=== PATIENT | male | born 1940 | race Caucasian/White ===

== ENCOUNTER 2016-06-10 13:55 | Inpatient (IN) | payer OTHER, MEDICAID ==
--- NOTE | 2016-06-10 14:39 | EDPHY ---
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, constipation, diabetes, dysphagia, GERD, G-tube, Sz d /o, Hep C, CHF, Herpes zoster, testicular mass, HTN, Infantile encephalopathy, kyphoscoliosis, pulmonary fibrosis, mental retardation, RAD, pancreatitis, left hemiplegia, urinary incontinence - Social History Smoking Status: Never smoked Constitutional: Initial Vital Signs Temperature (C) 37 C 06/10/16 13:59 Heart Rate 152 H 06/10/16 13:59 Respiratory Rate 44 H 06/10/16 13:59 Blood Pressure 109/77 06/10/16 13:59 O2 Sat (%) 81 L 06/10/16 13:59 O2 Delivery Mode Nasal Cannula O2 (L/minute) 4 Allergies/Adverse Reactions: codeine [Codeine] Allergy (Unknown, Verified 06/10/16 13:59) meperidine HCl [From Demerol] Allergy (Unknown, Verified 06/10/16 13:59) Phenothiazines Allergy (Unknown, Verified 06/10/16 13:59) promazine HCl [From Sparine] Allergy (Unknown, Verified 06/10/16 13:59) promethazine HCl [From Phenergan] Allergy (Unknown, Verified 06/10/16 13:59) levofloxacin [From Levaquin] Allergy (Verified 06/10/16 13:59) anti-psychotics Allergy (Uncoded 10/26/14 11:57) Home Medications: Medication Instructions Recorded lamoTRIgine [LamICTAL 100 MG (*)] 100 mg TUBE DAILY 09/23/11 levETIRAcetam [Keppra Oral Liquid 1,500 mg TUBE BID 09/23/11 500 mg/5 ml (*)] lamOTRIGine [Lamotrigine] 200 mg TUBE HS 02/02/13 Aspirin [Aspirin 325 mg (*)] 325 mg TUBE DAILY 04/17/14 Chlorhexidine Gluconate [Peridex 15 ml MM BID 07/25/13 oral soln (*)] Esomeprazole Magnesium [Nexium] 20 mg TUBE DAILY 07/25/13 Glycopyrrolate [Robinul] 1 mg TUBE BID 07/25/13 Herbals/Supplements -Info Only 1 each PO AD 07/25/13 Multivit &Minerals/Ferrous Fum 15 ml TUBE DAILY 07/25/13 [Multivitamin Liquid] Tears/Hypromellose [Natural 2 drop EACHEYE BID 07/25/13 Balance (OTC)] Polyethylene Glycol 3350 [Miralax 17 gm TUBE BID PRN 10/26/14 17 gm (*)] Albuterol [Proventil Neb] 3 ml IH DAILY 06/10/16 Carbamide Peroxide [Debrox Ear 3 - 4 drop EACHEAR Q30D 06/10/16 drops (*)] Hydrochlorothiazide [HCTZ (*)] 12.5 mg TUBE DAILY 06/10/16 Neomy Sulf/Bacitrac Zn/Poly 1 daniella EACHEYE BID 06/10/16 [Triple Antibiotic Oint pkt (*)] Sulfamethox/Tmp 800/160 mg 1 tab TUBE BID 06/10/16 [Bactrim Ds] Medical Decision Making ED Course/Re-evaluation: CHIEF COMPLAINT: Hypoxemic, increased HR and RR HISTORY OF PRESENT ILLNESS: The patient is a non-verbal 75 y/o male, with a history of developmental delay, arriving with his caregiver with reported hypoxemia and increased heart rate and respiratory rate. It is unclear how long these symptoms have been present. He also apparently has not had a bowel movement in the last 5 days. Caregivers have not noticed a fever, cough, or vomiting. Patient is unable to provide any history and doesn't follow commands at baseline. Caregiver does not endorse other symptoms. REVIEW OF SYSTEMS: Limited by chronic medical conditions. PHYSICAL EXAM: General Appearance: Alert at baseline per caregivers, well hydrated, and chronically ill-appearing. Tachycardic 153 and tachypneic 44. Afebrile. Head: Atraumatic without obvious injury Eyes: Pupils equal, round, reactive to light and accommodation, EOMI, no trauma , no injection. Ears: Clear bilaterally, no perforation, normal landmarks Nose: Atraumatic, no rhinorrhea, clear. Throat: There is no erythema or exudates, no lesions, normal tonsils, mucus membranes moist. Neck: 2+ carotid upstroke, no lymphadenopathy. Respiratory: Tachypneic. No retractions, no distress, no wheezes, and no accessory muscle use. Lungs have coarse rhonchi through all haro. Cardiovascular: Tachycardic regular rate and rhythm, no murmurs, rubs, or gallops. Good capillary refill all extremities. Gastrointestinal: Abdomen is soft, non-distended, no masses, no rebound, no guarding, no peritoneal signs. G-tube in place Musculoskeletal: Normal active ROM of all extremities, atraumatic. Neurological: Alert, appropriate at baseline per caregivers. Moves all 4 extremities. Does not follow commands. Skin: MRSA infection at G-tube site, otherwise no rashes, good turgor, no nodules on palpation. PAST MEDICAL HISTORY: Non-verbal and doesn't follow commands at baseline; developmental delay; CHF; hypertension; chronic respiratory failure PAST SURGICAL HISTORY: G-tube with MRSA at site SOCIAL HISTORY: Requires 24/7 care. Caregiver at bedside. DIAGNOSTICS/PROCEDURES/CRITICAL CARE TIME: Study: Chest x-ray Indication: Tachypnea, tachycardia, hypoxemia Results: Chest x-ray was obtained. The results of the study are diffuse infiltrate. Radiologist report pending. I viewed the images myself on the PACS system. DIFFERENTIAL DIAGNOSIS: The differential diagnosis for the patient's fever and hypoxemia included but was not limited to pneumonia, urinary tract infection, viral syndrome, meningitis, sepsis, myocardial infarction, acute mountain sickness, high altitude pulmonary edema, congestive heart failure, and pulmonary embolus MEDICAL DECISION MAKING: This is a developmentally delayed and nonverbal 75 y/o male who presents with hypoxemia, tachypnea, and tachycardia. He requires 24/7 care and is unable to communicate regarding his symptoms. He has diffuse rhonchi on exam and is breathing around 40/min. Plan for sepsis work up including IV, labs, urine, flu swab, and chest x-ray. Patient placed on 5LPM with SpO2 of 90%. Lactate is elevated at 4.5. Severe sepsis declared due to tachycardia, tachypnea , and elevated lactate. WBC is pending. 2.2L IV NS bolus administered. 750mg IV Levaquin administered. Repeat lactate ordered. 1515: Spoke with Dr. Darnell, hospitalist. She accepts admission for severe sepsis , hypoxemia, pneumonia. WBC 30, BGL 500. Other labs are pending. 1700: Repeat BGL is 404. Consulted with hospitalist. She agrees with 10 units SQ insulin for hyperglycemia. 1725: Repeat lactate is 4.4. Septic shock declared. At 6:00 p.m. this patient went in to a supraventricular tachycardia with a rate of 170. I attempted to inversions with 12 mg of adenosine each time but with no benefit. I have started this patient on a diltiazem drip after giving him 10 mg diltiazem bolus. In addition, he needs an insulin drip since his sugars are not coming down with fluids. This patient probably has a combination of diabetic ketoacidosis and lactic acidosis from sepsis. He has been treated with antibiotics, he has received fluids, he has received subcu and now IV insulin, he is on diltiazem bolus and drip. He is hemodynamically stable and I have moved to the intensive care unit I spent a total of 45 minutes of critical care time including but not limited to obtaining history, performing a physical exam, ordering interventions and the bedside monitoring of those interventions, collecting and interpreting tests and discussion with consultants but not including time spent performing procedures. This is independent of PA or DYNAMIC ETCHING PROCESSOR time spent with the patient. Approximately 1.5 hours after admitting the patient to the ICU, I was called to perform an Intubation as the patient was in worsening respiratory distress with worsening hypoxia, CO2 retention, tachypnea, required BV mask by nurses on my arrival. Procedure: Rapid sequence intubation. Because of the patient's medical condition, consent is implied. Indication for the procedure: airway protection and Hypoxemic/ hypercarbnic respiratory failure. The patient was pre-oxygenated with 100% oxygen by non-rebreather facemask. The following medications were given intravenously: etomidate 30mg and succinylcholine 120mg. Employing the video laryngoscope, the vocal chords were easily visualized, but the mucosa was significantly inflammed and moderate amount of phlegm/sputum/puss possibly was coming from the trachea. The patient was orally intubated under direct visualization with a 7.5 ETT. Tracheal intubation was confirmed by appropriate color change with the End Tidal CO2 detector. Capnography waveform was appropriate. Breath sounds were equal bilaterally without breath sounds over the stomach. Post-intubation O2 saturation was 100%. Post-intubation X-ray shows ETT in good position with the tip at the level of the clavicular heads. The procedure was performed by myself. The X-ray was interpreted by myself. - Data Points Laboratory Results: Laboratory Results 06/10/16 14:35 06/10/16 14:35 Medications Given: Discontinued Medications Adenosine (Adenosine) 6 mg IVP ONCE ONE Stop: 06/10/16 18:17 Last Admin: 06/10/16 18:16 Dose: 6 mg Adenosine (Adenosine) 12 mg IVP ONCE ONE Stop: 06/10/16 18:17 Last Admin: 06/10/16 18:16 Dose: 12 mg Adenosine (Adenosine) 12 mg IVP ONCE ONE Stop: 06/10/16 18:17 Last Admin: 06/10/16 18:16 Dose: 12 mg Albuterol/Ipratropium (Duoneb) 3 ml IH Q6 EDIS Stop: 12/07/16 17:59 Last Admin: 06/10/16 20:10 Dose: Not Given Levofloxacin/Dextrose (Levaquin 750 Mg (Premix)) 150 mls @ 100 mls/hr IV EDNOW ONE PRN Reason: Protocol Stop: 06/10/16 16:40 Last Admin: 06/10/16 15:23 Dose: 150 mls Vancomycin/Sodium Chloride (Vancomycin 1 Gm (Premix)) 250 mls @ 250 mls/hr IV Q24H EDIS PRN Reason: Protocol Stop: 07/10/16 19:59 Last Admin: 06/10/16 20:54 Dose: 250 mls Amiodarone HCl (Amiodarone Hcl) 100 mls @ 600 mls/hr IV ONCE ONE Stop: 06/10/16 19:16 Last Admin: 06/10/16 19:22 Dose: 100 mls Amiodarone HCl (Amiodarone Hcl) 200 mls @ 33.333 mls/hr IV ONCE ONE PRN Reason: Protocol Stop: 06/11/16 01:29 Last Admin: 06/10/16 19:39 Dose: 200 mls Insulin Human Regular (Humulin R) 10 unit SC EDNOW ONE Stop: 06/10/16 17:07 Last Admin: 06/10/16 17:12 Dose: 10 units Sodium Chloride (Ns *For Sepsis Order Set Only*) 2,200 ml IV EDNOW ONE Stop: 03/03/17 14:56 Last Admin: 06/10/16 15:03 Dose: 2,200 ml Departure - Departure Disposition: [facility] Inpatient Acute Clinical Impression: Severe sepsis, Hypoxemia, Pneumonia, Hyperglycemia, Paroxysmal SVT ( supraventricular tachycardia) DKA (diabetic ketoacidoses) Qualifiers: Diabetes mellitus type: due to underlying condition Diabetes mellitus complication detail: without coma Qualified Code(s): E08.10 - Diabetes mellitus due to underlying condition with ketoacidosis without coma Condition: Fair Report Scribed for: Luiz Abarca Report Scribed by: Morenita Mercado Date of Report: 06/10/16 Time of Report: 15:23
[2016-06-10 14:54] LABS: ADD DIFF? YES; ADD MORPH? NO; ATYPICAL LYMPHOCYTE FLAG 0 (0-99); FRAGMENT RBC FLAG 0 (0-99); HEMATOCRIT 47.9 % (40.0-51.0); HEMOGLOBIN 15.9 g/dL (13.7-17.5); LEFT SHIFT FLG 20 (0-99); LIPEMIA HEMOLYSIS FLAG 80 (0-99); MEAN CELL HEMOGLOBIN 30.2 pg (27.9-34.1); MEAN CELL HEMOGLOBIN CONCENTR. 33.2 g/dL (32.4-36.7); MEAN CELL VOLUME 90.9 fL (81.5-99.8); MEAN PLATELET VOLUME 10.3 fL (8.7-11.7); PLATELET CLUMPS FLAG 10 (0-99); PLATELET COUNT 230 10^3/uL (150-400); RED BLOOD CELL COUNT 5.27 10^6/uL (4.40-6.38); RED CELL DISTRIBUTION WIDTH 14.8 % (11.5-15.2)
[2016-06-10] MEDS ORDERED: NS 1,000 ML BAG *FOR SEPSIS ORDER SET ONLY IV ONE (14:55)
[2016-06-10 14:56] LABS: ADD SCAN? NO
[2016-06-10 15:01] LABS: INR 1.4 (0.83-1.16); PROTIME(PATIENT) 17.1 SEC (12.0-15.0)
[2016-06-10 15:02] LABS: APTT 32.5 SEC (23.0-38.0)
[2016-06-10 15:04] LABS: ANION GAP 15 mEq/L (8-16); BILIRUBIN,TOTAL 0.9 mg/dL (0.1-1.4); CALCIUM 9.4 mg/dL (8.5-10.4); CARBON DIOXIDE 29 mEq/l (22-31); CHLORIDE 92 mEq/L (97-110); CREATININE 1.8 mg/dL (0.7-1.3); GLOMERULAR FILTRATION RATE 37; GLUCOSE 500 mg/dL (70-100); POTASSIUM 5.1 mEq/L (3.5-5.2); SODIUM 136 mEq/L (134-144)
[2016-06-10 15:44] LABS: GIANT PLATELETS PRESENT; PLATELET ESTIMATE ADEQUATE (ADEQ); POLYCHROMASIA 1+
[2016-06-10 15:46] LABS: LACGHOST ORDER
[2016-06-10 15:55] LABS: LARGE PLATELETS PRESENT
[2016-06-10] MEDS ORDERED: INSULIN REGULAR HUMAN 100 UNIT/ML SC ONE (17:06)
[2016-06-10] MEDS ORDERED: D50W 25 GM/50 ML SYR IVP PRN (17:23)
[2016-06-10] MEDS ORDERED: INSULIN REGULAR HUMAN 100 UNIT/ML SC SCH (17:30)
[2016-06-10] MEDS ORDERED: NS 1,000 ML IV SCH (17:30)
[2016-06-10] MEDS ORDERED: VANCOMYCIN HCL/NORMAL SALINE 250 ML IV ONE ×2 (17:39→21:00)
[2016-06-10] MEDS ORDERED: PIPERACILLIN/TAZO 4.5 GM/DEX 100 ML IV SCH (17:40)
[2016-06-10] MEDS ORDERED: ONDANSETRON 4 MG/2 ML VIAL IVP PRN (17:45)
[2016-06-10] MEDS ORDERED: ACETAMINOPHEN 325 MG TAB PO PRN (17:45)
[2016-06-10] MEDS ORDERED: ACETAMINOPHEN 650 MG SUPP PR PRN (17:45)
[2016-06-10 17:57] VITALS: O2SAT 91
[2016-06-10] MEDS ORDERED: IPRATROPIUM/ALBUTEROL 3 ML DEYVIAL IH SCH (18:00)
[2016-06-10] MEDS ORDERED: ADENOSINE 6 MG/2 ML VIAL ONE ×3 (18:03→18:09)
[2016-06-10] MEDS ORDERED: INSULIN REGULAR HUMAN 100 UNIT, COSIGN. REQUIRED 1 EA in NS 100 ML IV ONE (18:11)
[2016-06-10] MEDS ORDERED: DILTIAZEM 25 MG/5 ML VIAL IVP ONE (18:13)
--- NOTE | 2016-06-10 18:13 | CPEKG ---
Heart Rate: 152 RR Interval: 395 P-R Interval: 56 QRSD Interval: 98 QT Interval: 332 QTC Interval: 528 P [place]: 0 QRS [place]: -78 T Wave [place]: 59 EKG Severity - ABNORMAL ECG - EKG Impression: SUPRAVENTRICULAR TACHYCARDIA EKG Impression: LEFT ANTERIOR FASCICULAR BLOCK EKG Impression: ANTERIOR INFARCT, AGE INDETERMINATE Electronically Signed By: Luiz Abarca 10-Jun-2016 19:13:21
[2016-06-10] MEDS ORDERED: DILTIAZEM 125 MG in D5W 125 ML IV ONE (18:14)
[2016-06-10] MEDS ORDERED: ADENOSINE 6 MG/2 ML VIAL IVP ONE ×3 (18:16)
[2016-06-10] MEDS ORDERED: DILTIAZEM 25 MG/5 ML VIAL IVP SCH (18:30)
[2016-06-10 18:31] VITALS: RESP 38; TEMP 98.6
[2016-06-10] MEDS ORDERED: TEARS/DEXTRAN 70/HYPROMELLOSE 15 ML OPHT.BTL EACHEYE PRN (18:45)
--- NOTE | 2016-06-10 18:48 | GHP ---
DATE OF ADMISSION: 06/10/2016 CHIEF COMPLAINT: Respiratory distress. HISTORY OF PRESENT ILLNESS: The patient is a 76-year-old, severely developmentally delayed male, no nverbal, and does not follow commands at baseline. He is a functional quadriplegic, has chronic asp iration, and is fed through a PEG. His guardian is through [facility] and he is a full cor. He lives at [facility] with 24/7 care. He has now presented to the hospital after his caregivers have noted worsening hypoxemia. Pulse ox dropped into the 70s. He was found to be very tachycardi c with increased respiratory rate. Heart rate was 150. Glucose was very elevated. He has been lis tated and grimacing. His abdomen is more distended than normal. About 1 week ago, he was found to have an MRSA infection at his PEG site tube and he is being treated with Bactrim. He has not had a bowel movement for the last 5 days. Further history is unobtainable from the patient due to his [facility] status. PAST MEDICAL HISTORY: 1. Severe developmental delay, was nonverbal at baseline due to history of meningitis. 2. Functional quadriplegia. 3. Diabetes type 2. 4. Hypertension. 5. 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 6. Seizure disorder. 7. Dysphagia, status post PEG tube. 8. Chronic respiratory failure on oxygen at night due to chronic aspiration. MEDICATIONS: Please see computer record for full detailed list. ALLERGIES: Codeine, meperidine, Levaquin and antipsychotics. SOCIAL HISTORY: No history of smoking or alcohol. He lives at [facility] with 24/7 care. His g uardian is through [facility]. His MOST form says full cor. He has a sister who lives in [facility]; however, family has been involved in his care for many years and is uninvested. REVIEW OF SYSTEMS: Unobtainable due to patient's mental status. FAMILY HISTORY: Unobtainable due to patient's mental status. PHYSICAL EXAMINATION: GENERAL: This is an elderly male, not communicative, in severe distress. He is tachycardic, breathing heavily, agitated, wincing, appears to be very uncomfortable. VITAL SIGN S: Temperature is 38.0, pulse 163, respiratory rate 44, blood pressure 148/85, saturating 89% on 4 L. EYE: Pupils equal and react to light. Normal conjunctivae. ENT: Unable to assess hearing. U nable to assess oropharynx as he has his jaw clenched. NECK: Trachea midline. No thyromegaly. CH EST: Increased respiratory effort. LUNGS: Scattered wheeze and rhonchi. CARDIOVASCULAR: Tachyca rdic. No murmur. No lower extremity edema. ABDOMEN: Very distended. Difficult to assess tendern ess. PEG tube site looks okay without any obvious drainage or purulence. No hepatosplenomegaly. S KIN: Warm, dry, intact without rash. MUSCULOSKELETAL: No cyanosis or clubbing. 0/5 strength uppe r and lower extremities. NEURO: Cranial nerves grossly intact but he is not following commands. H e is grimacing and clenching. Unable to assess sensation. PSYCH ASSESSMENT: Nonverbal. Not inter active. Does not follow commands. Appears very uncomfortable. LABORATORY DATA: White count 31.95, hematocrit 47.9, platelets 230. Sodium 136, potassium 5.1, chl oride 92, bicarb 29, BUN 50, creatinine 1.8, glucose 500. Lactate is 4.5, repeat lactates are not d ropping significantly. Chest x-ray shows bilateral infiltrates. No EKG has yet been performed. I spoke with Dr. Abarca regarding case. He plans to put the patient in stepdown. ASSESSMENT/PLAN: 1. Severe sepsis. Source is aspiration pneumonia versus an intraabdominal source. I am concerned about his abdomen as it is having increasing abdominal distention. His lactate is not clearing. We will continue aggressive IV fluid hydration and follow serial lactates. We will check a CT scan of the abdomen and pelvis. We will treat empirically with IV vancomycin and IV Zosyn. 2. Acute respiratory failure. His respiratory status is very poor. I will check a stat ABG. 3. Recent MRSA infection of his PEG tube site. It currently looks good. He is on isolation. IV v ancomycin will be added to antibiotics as above. 4. Severe mental retardation and developmental delay. He is nonverbal at baseline. He has a guard adelfo through [facility] and his MOST form says full cor. 5. Chronic dysphagia, status post percutaneous endoscopic gastrostomy tube. We will cover him for suspected aspiration pneumonia. 6. Diabetes type 2 with severe hyperglycemia. We will aggressively hydrate with IV fluid and place him on insulin sliding scale but if glucoses continue at this degree of elevation, could consider a n insulin drip. 7. Acute renal failure. He has reported underlying chronic kidney disease due to history of glomer ulonephritis. Will give IV fluids and recheck in the morning. 8. Chronic respiratory failure due to chronic aspiration. Per last documentation on last admission , oxygen was only at night. 9. Seizure disorder. Will continue home medications. 10. Code status is full per his MOST form. He is, however, critically ill. I am concerned that th is may be a life-threatening situation for him. Once we clarify how he does after initial resuscita tion, could consider contacting his guardian and seeing whether or not, given current situation and critical illness, a less aggressive approach may be most appropriate. ADMISSION STATUS: 1. He is critically ill. We will admit to inpatient. 2. DVT prophylaxis. He is high risk. I will prescribe subcu Lovenox starting tomorrow morning. 3. Critical care time spent 1 hour. /[id number]/MODL
[2016-06-10 18:51] LABS: TROPONIN I 0.212 ng/mL (0-0.034)
[2016-06-10] MEDS ORDERED: AMIODARONE HCL 100 ML IV ONE (19:07)
[2016-06-10 19:22] LABS: BASE EXCESS -6.1 mEq/L (-2.5-2.5); BICARBONATE 23 mEq/L (22-26); MEASURED OXYGEN SATURATION 93 % (92-95); PCO2 60 mmHg (34-38); PO2 81 mmHg (65-75); TCO2 25 mEq/L (23-27)
[2016-06-10] MEDS ORDERED: AMIODARONE HCL 200 ML IV SCH (19:30)
[2016-06-10] MEDS ORDERED: AMIODARONE A.FIB-6HR INFSN (ORDER 2/3) IV ONE (19:30)
[2016-06-10] MEDS ORDERED: INSULIN REGULAR HUMAN 100 UNIT in NS 100 ML IV SCH (19:30)
[2016-06-10] MEDS ORDERED: AMIODARONE A.FIB-LOAD DOSE(ORDER 1/3) IV ONE (19:30)
[2016-06-10] MEDS ORDERED: ALTEPLASE 2 MG VIAL IVP PRN (19:41)
[2016-06-10] MEDS ORDERED: PROPOFOL/EMULSION 1,000 MG/100 ML BOTTLE IV ONE (19:58)
[2016-06-10] MEDS ORDERED: VANCOMYCIN HCL/NORMAL SALINE 250 ML IV SCH (20:00)
[2016-06-10] MEDS ORDERED: VASOPRESSIN/DEXTROSE 250 ML IV SCH (20:00)
[2016-06-10] MEDS ORDERED: NOREPINEPHRINE BITARTRATE 4 MG in D5W 500 ML IV SCH (20:00)
--- NOTE | 2016-06-10 20:19 | HOSPPROG ---
Hospitalist Progress Note Assessment/Plan: I was called back to patient's bedside after arrival to ICU due to worsening respiratory status. ABG with pH 7.2 due to CO2 retention. Oxygen levels escalating and patient's breathing clinically worsened. I contacted Dr. Abarca who arrived to ICU for intubation. Oropharynx very swollen, irritated and with purulent secretions. Successful intubation. Patient caregiver at bedside throughout this time and indicated that this was the desired treatment course. BP dropped after intubation as he will likely require pressors. Dr. Abarca to attempt central line. Will initiate septic shock protocol. While in ER was found to be in SVT. Got adenosine x 2 without any effect. Then IV diltiazem which also made little change. HR was greater that 160. IV amiodarone started. Patient now in NSR. Additional CC time : 35 minutes ] Objective: Vital Signs Temp Pulse Resp BP Pulse Ox 37 C 160 H 38 H 122/82 H 91 L 06/10/16 18:27 06/10/16 18:27 06/10/16 18:27 06/10/16 18:27 06/10/16 18:27 06/09/16 06/10/16 06/11/16 05:59 05:59 05:59 Intake Total 2200 Balance 2200 PT 17.1 SEC (12.0-15.0) H 06/10/16 14:35 INR 1.40 (0.83-1.16) H 06/10/16 14:35 ICD10 Worksheet Patient Problems: Problems Problem Status Onset DKA (diabetic ketoacidoses) Acute Hyperglycemia Acute Hypoxemia Acute Paroxysmal SVT (supraventricular tachycardia) Acute Pneumonia Acute Severe sepsis Acute Benign hypertension Active Clostridium difficile infection Active Diabetes mellitus type 2 Active Chronic Disease Mgmt/Transitional Care Acute Chronic Disease Mgmt/Transitonal Care Acute Functional quadriplegia Acute Hypercalcemia Acute
[2016-06-10 20:49] LABS: BASE EXCESS -9.9 mEq/L (-2.5-2.5); BICARBONATE 15 mEq/L (22-26); MEASURED OXYGEN SATURATION 99 % (92-95); PCO2 31 mmHg (34-38); PO2 132 mmHg (65-75); TCO2 16 mEq/L (23-27)
[2016-06-10 20:50] LABS: P/F RATIO 132 RATIO; PIP 28; PRESSURE SUPPORT 7; SIMV YES
[2016-06-10 20:51] LABS: O2 CONCENTRATIION 100 % (0-100)
[2016-06-10] MEDS ORDERED: CHLORHEXIDINE GLUCONATE 15 ML UDL MM SCH (21:00)
[2016-06-10] MEDS ORDERED: NEOMY SULF/BACITRAC ZN/POLY 30 GM OINTTUBE TP SCH (21:00)
[2016-06-10] MEDS ORDERED: levETIRAcetam 500 MG/5 ML UDCUP TUBE SCH (21:00)
[2016-06-10] MEDS ORDERED: lamoTRIgine 100 MG TAB TUBE SCH (21:00)
[2016-06-10] MEDS ORDERED: HYPROMELLOSE EACHEYE SCH (21:00)
[2016-06-10] MEDS ORDERED: GLYCOPYRROLATE 1 MG TAB TUBE SCH (21:00)
[2016-06-10] MEDS ORDERED: TEARS EACHEYE SCH (21:00)
[2016-06-10] MEDS ORDERED: NON-FORMULARY NEW DRUG (Lamotrigine [Lamotrigine] 200 MG) TUBE SCH (21:00)
[2016-06-10] MEDS ORDERED: SODIUM BICARBONATE 50 MEQ/50 ML SYR ONE (21:12)
[2016-06-10] MEDS ORDERED: PHENYLEPHRINE HCL 50 MG in D5W 250 ML IV SCH (22:00)
[2016-06-10] MEDS ORDERED: HYDROCORTISONE 100 MG/2 ML VIAL IVP SCH ×2 (22:00)
[2016-06-10 22:02] LABS: MIXED VENOUS O2 SATURATION 11 % (65-75)
[2016-06-10 22:17] LABS: PCO2 VENOUS 73 mmHg (40-44); PO2 VENOUS < 20 mmHg (35-40); TCO2 VENOUS 22 mEq/L (23-27); VEN MEASURED OXYGEN SATURATION 11 % (65-75)
[2016-06-10 22:21] LABS: PH VENOUS BLOOD 7.05 (7.31-7.42)
[2016-06-10] MEDS ORDERED: MIDAZOLAM HCL 50 MG in D5W 50 ML IV SCH (22:30)
[2016-06-10] MEDS ORDERED: fentaNYL/NACL 100 ML IV SCH (22:30)
[2016-06-10] MEDS ORDERED: PROPOFOL/EMULSION 100 ML IV SCH (22:30)
--- NOTE | 2016-06-10 23:24 | GDS ---
DATE OF : June 10, 2016. DIAGNOSES: 1. Septic shock. 2. Aspiration pneumonia. 3. Acute respiratory failure. 4. Dysphagia with chronic PEG tube. 5. Recent methicillin-resistant Staphylococcus aureus infection of PEG tube. 6. Severe mental retardation with developmental delay. 7. Diabetes type 2. 8. Acute renal failure. 9. Seizure disorder. HOSPITAL COURSE: The patient was a 75-year-old, severely developmentally delayed male, nonverbal, n ot following commands at baseline. He is a functional quadriplegic with chronic aspiration, fed thr ough a PEG. He has been a longstanding full cor. He had a guardian through [facility]. He g ot / care at [facility]. He presented to the hospital with worsening hypoxemia, tachycardia a nd respiratory distress. He was thought to have aspiration pneumonia. He was treated aggressively with antibiotics. His status rapidly declined after admission. He was emergently intubated in the ICU. He dropped his pressure and required 3 pressors, but could not maintain a blood pressure on th mac medications. Steroids were added. He had an SVT that was unresponsive to adenosine or diltiaze m, but we did get him into a normal sinus rhythm on amiodarone. His status continued to decline. Despite 3 pressors, we only had a systolic blood pressure in the 4 0s to 50s. I spoke with his guardian and explained to her that he was not going to survive this glenna nt and it would be cruel to perform CPR, shock him at the end of his life as it is never of any bene fit in overwhelming sepsis. At that point, she did agree to DNR status. He shortly thereafter without extreme measures being undertaken. /[id number]/MODL
[2016-06-11] MEDS ORDERED: ALBUTEROL 60 PUFFS/8 GM MDI IH SCH
[2016-06-11] MEDS ORDERED: PIPERACILLIN/TAZO 2.25 GM/DEX 50 ML IV SCH
[2016-06-11 00:21] VITALS: BP 0/0; PULSE 0
[2016-06-11] MEDS ORDERED: AMIODARONE A.FIB-18HR INFSN (ORDER 3/3) IV ONE (01:30)
[2016-06-11] MEDS ORDERED: ETOMIDATE 40 MG/20 ML INJ IV ONE (02:00)
[2016-06-11] MEDS ORDERED: SUCCINYLCHOLINE CHLORIDE*ANESTHESIA ONLY*200 MG/10 ML SYR IVP ONE (02:00)
[2016-06-11] MEDS ORDERED: ALBUTEROL 3 ML DEYVIAL IH SCH (09:00)
[2016-06-11] MEDS ORDERED: NON-FORMULARY NEW DRUG (Esomeprazole Magnesium [Nexium] 20 MG) TUBE SCH (09:00)
[2016-06-11] MEDS ORDERED: lamoTRIgine 100 MG TAB TUBE SCH (09:00)
[2016-06-11] MEDS ORDERED: ASPIRIN 325 MG TAB TUBE SCH (09:00)
[2016-06-11] MEDS ORDERED: ENOXAPARIN 40 MG/0.4 ML SYR SC SCH (09:00)
[2016-06-11] MEDS ORDERED: LANSOPRAZOLE SUSP 30MG/10ML UDSYR (Adult) TUBE SCH (09:00)
[2016-06-12] MEDS ORDERED: HYDROCORTISONE 100 MG/2 ML VIAL IVP SCH (09:00)
[2016-07-09] MEDS ORDERED: CARBAMIDE PEROXIDE 15 ML BOTTLE EACHEAR SCH (09:00)
== END 2016-06-11 03:19 | disposition expired | DRG 871 ==
LOC: F2N 18:30
PROVIDERS: ADMIT Internal Medicine; ATTEND Internal Medicine
PROC: 0BH17EZ Insertion of Endotracheal Airway into Trachea, Via Natural or Artificial Opening (ICD-10-PCS; principal; 2016-06-10)
PROC: 02HV33Z Insertion of Infusion Device into Superior Vena Cava, Percutaneous Approach (ICD-10-PCS; 2016-06-10)
DX: A41.9 Sepsis, unspecified organism (principal); J69.0 Pneumonitis due to inhalation of food and vomit; R65.21 Severe sepsis with septic shock; J96.21 Acute and chronic respiratory failure with hypoxia; N17.9 Acute kidney failure, unspecified; E13.10 Other specified diabetes mellitus with ketoacidosis without coma; E11.22 Type 2 diabetes mellitus with diabetic chronic kidney disease; R62.50 Unspecified lack of expected normal physiological development in childhood; R53.2 Functional quadriplegia; F72 Severe intellectual disabilities; G40.909 Epilepsy, unspecified, not intractable, without status epilepticus; R13.10 Dysphagia, unspecified; B95.62 Methicillin resistant Staphylococcus aureus infection as the cause of diseases classified elsewhere; Z93.1 Gastrostomy status; Z66 Do not resuscitate; Z99.81 Dependence on supplemental oxygen
CPT/HCPCS: 82947-QW; 96365; 96366; C1751; J0153; J0282; J0330; J1815; J1956; J2370; J2543; J2704; J3010; J3370